=== PATIENT | female | born 1950 | race Caucasian/White ===

== ENCOUNTER 2023-03-04 13:10 | Emergency (ER) | payer MEDICARE ==
[~2023-03-04 13:10] MED LIST: B COMPLEX PO; BIOTIN5000 MC2 PO; CHROMIUM PIC PO; FERROUS GLUC PO; FOLIC ACID1 MG PO; MELOXICAM7.5 MG PO; MOTRIN800 MG/TAB PO; MULTIVITAMI1 PO; PERCOCET 5/325M1 TAB PO; PRILOSEC20 MG/CAP PO; VIT C/ACEROL500 M1 PO; XARELTO10 MG PO
[2023-03-04 18:48] VITALS: BP 00/00
== END 2023-03-04 18:49 | disposition expired ==
LOC: EDBD 13:10 → ED 13:10 → EDBD 13:40 → ED 18:49
DX: I46.9 Cardiac arrest, cause unspecified (principal); Z51.5 Encounter for palliative care